=== PATIENT | male | born 1945 | race Caucasian/White ===

== ENCOUNTER 2020-01-08 17:10 | Inpatient (IN) | payer MEDICARE, BC, OTHER, SELFPAY ==
[2020-01-08] VITALS (9 sets, daily range): BP systolic 107–131; BP diastolic 59–111; PULSE 98–138; RESP 18–31; TEMP 35.9–39.3; O2SAT 93–100
--- NOTE | ~2020-01-08 | XR_ITS ---
EXAMINATION: XR chest 1V portable 01/08/2020 18:50 INDICATION: Fever. History of COPD. PROCEDURE: AP portable chest COMPARISON: No prior studies for comparison. FINDINGS: The lungs are clear. The lungs are hyperinflated which is consistent with, but not diagnost ic of chronic obstructive pulmonary disease. The cardiomediastinal silhouette is within normal limits . There are no pleural effusions. There is no pneumothorax suspected. IMPRESSION: 1: NO ACUTE CARDIOPULMONARY DISEASE. Reviewed, dictated and finalized at location A.
--- NOTE | 2020-01-08 17:16 | ECG_ITS ---
Measurements Intervals [place] Rate: 137 P: 79 IA: 137 QRS: 10 QRSD: 83 T: 78 QT: 276 QTc: 417 Interpretive Statements SINUS TACHYCARDIA BASELINE ARTIFACT- I, II, AVR, AVL, AVF, V1, V4-V6 ABNORMAL ECG Electronically Signed On 01-08-2020 19:49:56 CDT by Kristopher Goodson D.O.
--- NOTE | 2020-01-08 17:29 | ED.GENADULT ---
HPI - General Adult General Chief complaint: Altered Mental Status Stated complaint: fever/hallucinations Time Seen by Provider: 01/08/20 17:29 Source: EMS History of Present Illness HPI narrative: 74 years old white male, long term, came to the emergency room with a chief complaint of chills, confusion and fever. History of COPD and bilateral below-knee amputation. Related Data Allergies Allergy/AdvReac Type Severity Reaction Status Date / Time codeine Allergy Unknown Verified 01/08/20 17:55 Review of Systems Review of Systems: ROS unobtainable: Yes unobtainable due to medical condition PMFSH Social History Social History Gender identity (if verbalized by the patient): Male Exam Narrative: Exam Narrative: General appearance: Well-developed, well-nourished, shaky, confused Skin: Normal color Head: Normocephalic, nontraumatic Eyes: Clear conjunctiva ENT: Oropharynx normal, ears normal, nose normal Neck: Supple, nontender Chest and respiratory: Airway patent, no respiratory distress, no accessory muscle use Heart: Regular tachycardia Abdomen: Soft, nontender, no organomegaly, quiet bowel sounds Vascular: Normal peripheral pulses, normal capillary refill. Musculoskeletal: Normal range of motion, nontender back, bilateral below-knee amputation Neurologic: Alert and oriented to his name only Course Course Emergency Course: Stable Vital Signs Vital signs: Vital Signs Temperature 39.3 C H 01/08/20 17:03 Pulse Rate 138 H 01/08/20 17:03 Respiratory Rate 31 H 01/08/20 17:03 Blood Pressure 131/111 H 01/08/20 17:03 Pulse Oximetry 93 01/08/20 17:03 Temperature 39.3 C H 01/08/20 17:03 Pulse Rate 138 H 01/08/20 17:03 Respiratory Rate 31 H 01/08/20 17:03 Blood Pressure 131/111 H 01/08/20 17:03 Pulse Oximetry 93 01/08/20 17:03 Medical Decision Making MDM Narrative Medical decision making narrative: Patient came with fever Labs, chest x-ray, UA, IV fluid fluids, Tylenol IV. Further plan to follow Differential Diagnosis Differential Diagnosis: Urinary tract infection, pneumonia, viral infection Vital Signs Vital Signs: Vital Signs Temperature 39.3 C H 01/08/20 17:03 Pulse Rate 138 H 01/08/20 17:03 Respiratory Rate 31 H 01/08/20 17:03 Blood Pressure 131/111 H 01/08/20 17:03 Pulse Oximetry 93 01/08/20 17:03 Temperature 39.3 C H 01/08/20 17:03 Pulse Rate 138 H 01/08/20 17:03 Respiratory Rate 31 H 01/08/20 17:03 Blood Pressure 131/111 H 01/08/20 17:03 Pulse Oximetry 93 01/08/20 17:03 Lab Data Result diagrams: 01/08/20 17:27 01/08/20 17:27 Labs: Lab Results 01/08/20 01/08/20 01/08/20 Range/Units 17:27 17:27 17:28 WBC 10.8 H (4.5-10.0) K/mm3 RBC 4.04 L (4.6-6.20) M/mm3 Hgb 8.6 L (14.0-18.0) g/dL Hct 29.5 L (42.0-52.0) % MCV 73.0 L (80-100) fl MCH 21.3 L (26-34) pg MCHC 29.2 L (32-36) g/dl RDW 19.8 H (11.5-14.5) % Plt Count 480 H (150-375) k/mm3 MPV 8.5 (7.4-10.4) fl Immature Gran % (Auto) 0.5 (0-0.5) % Neut % (Auto) 87.3 H (45.5-73.1) % Lymph % (Auto) 4.7 L (18.3-44.2) % Gila % (Auto) 5.5 (2.6-8.5) % Eos % (Auto) 1.6 (0-4.4) % Baso % (Auto) 0.4 (0.2-1.2) % Lymph # (Auto) 0.51 L (0.9-3.2) K/mm3 Gila # (Auto) 0.6 (0.1-0.6) K/mm3 Eos # (Auto) 0.2 (0-0.3) K/mm3 Baso # (Auto) 0.0 (0.0-0.1) K/mm3 Abs Immat Gran (auto) 0.05 H (0.00-0.031) K/mm3 Absolute Neuts (auto) 9.5 H (1.3-6.7) K/mm3 Absolute Nucleated RBC 0.0 (0.0-0.012) K/mm3 Nucleated RBC % 0.0 (0.0-0.2) % Sodium 136
[2020-01-08 17:35] LABS: Basophils Percent Auto 0.4 % (0.2-1.2); Eosinophils Absolute Auto 0.2 K/mm3 (0-0.3); Eosinophils Percent Auto 1.6 % (0-4.4); Hematocrit 29.5 % (42.0-52.0); Hemoglobin 8.6 g/dL (14.0-18.0); Immature Granulocyte Absolute 0.05 K/mm3 (0.00-0.031); Immature Granulocyte Percent A 0.5 % (0-0.5); Lymphocytes Absolute Auto 0.51 K/mm3 (0.9-3.2); Lymphocytes Percent Auto 4.7 % (18.3-44.2); Mean Corpuscular HGB Conc 29.2 g/dl (32-36); Mean Corpuscular Hemoglobin 21.3 pg (26-34); Mean Platelet Volume 8.5 fl (7.4-10.4); Monocytes Absolute Auto 0.6 K/mm3 (0.1-0.6); Monocytes Percent Auto 5.5 % (2.6-8.5); Neutrophils Absolute Auto 9.5 K/mm3 (1.3-6.7); Neutrophils Percent Auto 87.3 % (45.5-73.1); Platelet Count Result 480 k/mm3 (150-375); Red Blood Count 4.04 M/mm3 (4.6-6.20); Red Cell Distribution Width 19.8 % (11.5-14.5); White Blood Count 10.8 K/mm3 (4.5-10.0)
[2020-01-08 17:46] LABS: Alanine Aminotransferase 20 U/L (4-50); Albumin Level 3.5 g/dL (3.5-5.1); Alkaline Phosphatase 99 U/L (38-126); Anion Gap 10.4 mmol/L (7-16); Aspartate Amino Transferase 19 U/L (17-59); Bilirubin,Total 0.4 mg/dL (0.2-1.3); Blood Urea Nitrogen 16 mg/dL (9-20); Calcium 8.5 mg/dL (8.4-10.2); Carbon Dioxide 31 mmol/L (22-30); Chloride 99 mmol/L (98-107); Estimated Glomerular Filt Rate > 60; Glucose 101 mg/dL (75-110); Potassium 4.4 mmol/L (3.4-5.0); Sodium 136 mmol/L (137-145)
[2020-01-08 17:47] LABS: Add Urine Microscopic? YES; Appearance Urine Cloudy (Clear); Bacteria Urine Trace /hpf; Bilirubin Urine Negative (Negative); Blood Urine 3+ (Negative); Color Urine Red (Yellow); Glucose Urine UA Negative (Negative); Ketones Urine Negative (Negative); Leukocyte Esterase Ur 2+ LEU/UL (Negative); Mucus Urine Rare /lpf; Nitrate Urine Negative (Negative); Protein Urine 2+ mg/dL (Negative); RBC Urine >75 /hpf (0-2); Specific Grav Ur 1.016 (1.001-1.035); Squamous Epithelial Cell Urine Moderate /hpf (Few); Urobilinogen Urine Negative mg/dL (<2.0); WBC Urine 31-50 /hpf
[2020-01-08 17:53] LABS: Lactic Acid 1.7 mmol/L (0.7-2.1)
[2020-01-08] MEDS: SODIUM CHLORIDE 0.9% IV 1,000 ML 999 ML IV CONT (17:56)
[2020-01-08] MEDS: LACTATED RINGERS 1,000 ML 125 ML IV CONT (23:07)
--- NOTE | 2020-01-08 23:48 | ADMGEN ---
This patient, Mauricio Talavera, was admitted to [facility] Surg Room 329-01. Patient/family oriented to hospital policies and general routines including ID bracelet, bed and alarms, visiting hours, pain management, procedures, bathroom and other care routines, personal items, smoking policy, room service/diet, and visiting hours. Valuables list has been completed. Information on how to activate the Rapid Response Team has been discussed. Patient/Family are encouraged to report perceived risks to care and to ask questions if they do not understand what they are told or what they should do.
[2020-01-09] VITALS (15 sets, daily range): BP systolic 130–157; BP diastolic 66–78; PULSE 79–101; RESP 18–20; TEMP 36–37; O2SAT 97–100
[2020-01-09 10:12] LABS: Basophils Absolute Auto 0.1 K/mm3 (0.0-0.1); Basophils Percent Auto 0.9 % (0.2-1.2); Eosinophils Absolute Auto 0.3 K/mm3 (0-0.3); Eosinophils Percent Auto 4.7 % (0-4.4); Hematocrit 24.1 % (42.0-52.0); Immature Granulocyte Absolute 0.02 K/mm3 (0.00-0.031); Immature Granulocyte Percent A 0.3 % (0-0.5); Lymphocytes Absolute Auto 0.67 K/mm3 (0.9-3.2); Lymphocytes Percent Auto 9.6 % (18.3-44.2); Mean Corpuscular HGB Conc 28.6 g/dl (32-36); Mean Corpuscular Volume 73.5 fl (80-100); Mean Platelet Volume 8.4 fl (7.4-10.4); Monocytes Absolute Auto 0.7 K/mm3 (0.1-0.6); Monocytes Percent Auto 10.3 % (2.6-8.5); Neutrophils Absolute Auto 5.2 K/mm3 (1.3-6.7); Neutrophils Percent Auto 74.2 % (45.5-73.1); Platelet Count Result 405 k/mm3 (150-375); Red Blood Count 3.28 M/mm3 (4.6-6.20); Red Cell Distribution Width 19.8 % (11.5-14.5)
[2020-01-09 10:27] LABS: Anion Gap 9.6 mmol/L (7-16); Blood Urea Nitrogen 14 mg/dL (9-20); Calcium 8.1 mg/dL (8.4-10.2); Carbon Dioxide 26 mmol/L (22-30); Chloride 103 mmol/L (98-107); Estimated Glomerular Filt Rate > 60; Glucose 83 mg/dL (75-110); Potassium 3.6 mmol/L (3.4-5.0); Sodium 135 mmol/L (137-145)
[2020-01-09 10:34] LABS: Hemoglobin 6.9 g/dL (14.0-18.0)
[2020-01-09 10:35] LABS: Anisocytosis 1+ (NORMAL); Hypochromasia 1+ (NORMAL); Platelet Estimate Adequate (Adequate)
[2020-01-09 10:36] LABS: Ovalocytes 1+ (NORMAL)
[2020-01-09] MEDS: LACTATED RINGERS 1,000 ML 125 ML IV CONT (11:41)
[2020-01-09] MEDS: polyethylene glycoL 3350 17 GM POWD.PACK PO (11:52)
[2020-01-09] MEDS: FERROUS SULFATE 324 MG TABLET PO (11:53)
[2020-01-09] MEDS: TAMSULOSIN HCL 0.4 MG CAPSULE PO (11:53)
[2020-01-09] MEDS: METOPROLOL SUCCINATE EXT REL 25 MG TABCR PO (11:54)
[2020-01-09] MEDS: PANTOPRAZOLE 40 MG TABLET PO (11:54)
[2020-01-09 12:30] LABS: Immature Reticulocyte Fraction 15.8 % (3.0-15.9); Reticulocyte Hemoglobin Conten 20.9 pg (28.2-35.7); Reticulocyte Percent 1.49 % (0.7-4.3); Reticulocytes Absolute 0.05 B/L (32.2-175.7)
[2020-01-09 13:02] LABS: Lactate Dehydrogenase 328 U/L (313-618)
[2020-01-09 13:40] LABS: Iron 17 ug/dL (49-181)
[2020-01-09 13:49] LABS: Percent Iron Saturation 7 % (20-50)
--- NOTE | 2020-01-09 17:17 | PM.IMHP ---
H&P: HPI History of Present Illness Date/Time: 01/09/20 17:17 Chief complaint: Urinary Tract Infection Narrative: date of visit 01/08 1130. 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 He does not remember specifics and was evaluated in ER here and found to have pyuria with his indwelling Dejesus , placed on antibiotics and admitted for evaluation the same. He has had a dry cough for several months. COVID tested negative one week ago was retested in the ER. He states that the catheter has been present for approximately 2 weeks after treatment at [facility] for the ongoing osteo. He has had neurogenic bladder and has done self catheterizations for years. Review of Systems Review of Systems: Narrative: constitutional weight is stable appetite good Eye no double vision scotoma mouth no pharyngitis laryngitis pulmonary dry cough but no increased shortness of breath GI past history of peptic disease but no GI complaints melena hematochezia or diarrhea at present time as per present illness has had of indwelling Dejesus the past 2 weeks and prior to that had done self catheterizations for neurogenic bladder muscle skeletal no particular joint discomfort, chest chronic osteo neuro no seizures no syncope integument the decubitus ulcers on his buttocks bilaterally PMFSH Past Medical History Medical History (Updated 01/09/20 @ 17:24 by Skinny Weston MD) Decubitus ulcers Osteomyelitis Surgical History Surgical History (Updated 01/09/20 @ 17:23 by Skinny Weston MD) S/P bilateral below knee amputation Family History Family History (Updated 01/09/20 @ 17:21 by Skinny Weston MD) Mother , had hypertension but of natural causes at age 93 Hypertension Other Unknown family medical history Social History Social History (Updated 01/09/20 @ 17:26 by Skinny Weston MD) Social History: retired from [employer] approximately 10 years ago, no EtOH and has not smoked for some 15 years a prior that 1-2 packs a day for over 30 years has lived independently until recent bout decubitus ulcers and osteo Smoking status: Former smoker Alcohol intake: never Substance use: never Gender identity (if verbalized by the patient): Male Spiritual care concerns: No Meds Home Medications and Allergies Home Medications Medication Instructions Recorded Confirmed Type amoxicillin-pot clavulanate 1 tablet PO DAILY 01/08/20 01/09/20 History gabapentin 600 mg PO TID 01/08/20 01/09/20 History metoprolol succinate 25 mg PO DAILY 01/08/20 01/09/20 History omeprazole 20 mg PO DAILY 01/08/20 01/09/20 History tamsulosin 0.4 mg PO DAILY 01/08/20 01/09/20 History trazodone 100 mg PO HS 01/08/20 01/09/20 History acetaminophen 500 mg PO TID PRN 01/09/20 01/09/20 History ferrous sulfate 325 mg PO DAILY 01/09/20 01/09/20 History polyethylene glycol 3350 [Miralax] 17 g PO DAILY 01/09/20 01/09/20 History Allergies Allergy/AdvReac Type Severity Reaction Status Date / Time codeine Allergy Unknown Verified 01/08/20 17:55 Vital Signs Vital Signs - 24 hr 01/08/20 18:41 01/08/20 19:04 01/08/20 19:09 Temperature 37.4 C 37.7 C H Pulse Rate 124 H 122 H Respiratory Rate 21 H 25 H Blood Pressure 124/102 H 126/72 Pulse Oximetry 95 93 01/08/20 19:46 01/08/20 20:20 01/08/20 21:25 Temperature Pulse Rate 115 H 111 H 99 Respiratory Rate 20 20 18 Blood Pressure 107/61 109/59 L 109/61 Pulse Oximetry 95 100 100 01/08/20 21:27 01/08/20 21:45 01/09/20 02:00 Temperature 37.2 C 35.9 C L 36.9 C Pulse Rate 99 98 101 H Respiratory Rate 19 18 18 Blood Pressure 109/61 120/62 142/73 H Pulse Oximetry 100 96 100 01/09/20 06:00 01/09/20 10:00 01/09/20 11:50 Temperature 36.0
[2020-01-09] MEDS: SODIUM CHLORIDE 0.9% IV 250 ML 30 ML IV CONT (17:49)
--- NOTE | 2020-01-09 22:20 | PC.NURSE ---
Found Normal saline had been running instead of blood. blood had been hanging for four hours with no blood infused. Blood so it was taken down. Nelda Colón informed. New 1 unit of blood ordered.
[2020-01-10] VITALS (9 sets, daily range): BP systolic 131–174; BP diastolic 63–86; PULSE 79–95; RESP 18–20; TEMP 36.3–36.8; O2SAT 92–100; BMI 22.4
[2020-01-10] MEDS: LACTATED RINGERS 1,000 ML 125 ML IV CONT ×3 (03:12→23:10)
[2020-01-10] MEDS: PANTOPRAZOLE 40 MG TABLET PO (06:14)
[2020-01-10 06:21] LABS: Basophils Absolute Auto 0.1 K/mm3 (0.0-0.1); Basophils Percent Auto 0.5 % (0.2-1.2); Eosinophils Absolute Auto 0.5 K/mm3 (0-0.3); Eosinophils Percent Auto 3.8 % (0-4.4); Hematocrit 27.1 % (42.0-52.0); Hemoglobin 8.4 g/dL (14.0-18.0); Immature Granulocyte Absolute 0.04 K/mm3 (0.00-0.031); Immature Granulocyte Percent A 0.3 % (0-0.5); Lymphocytes Absolute Auto 0.98 K/mm3 (0.9-3.2); Lymphocytes Percent Auto 8.1 % (18.3-44.2); Mean Platelet Volume 8.6 fl (7.4-10.4); Monocytes Absolute Auto 1.2 K/mm3 (0.1-0.6); Neutrophils Absolute Auto 9.3 K/mm3 (1.3-6.7); Neutrophils Percent Auto 77.3 % (45.5-73.1); Platelet Count Result 388 k/mm3 (150-375); Red Blood Count 3.66 M/mm3 (4.6-6.20); Red Cell Distribution Width 19.3 % (11.5-14.5); White Blood Count 12.1 K/mm3 (4.5-10.0)
[2020-01-10 06:30] LABS: Anion Gap 8.8 mmol/L (7-16); Blood Urea Nitrogen 13 mg/dL (9-20); Carbon Dioxide 27 mmol/L (22-30); Chloride 103 mmol/L (98-107); Estimated Glomerular Filt Rate > 60; Glucose 99 mg/dL (75-110); Potassium 3.8 mmol/L (3.4-5.0); Sodium 135 mmol/L (137-145)
[2020-01-10] MEDS: TAMSULOSIN HCL 0.4 MG CAPSULE PO (09:45)
[2020-01-10] MEDS: FERROUS SULFATE 324 MG TABLET PO (09:52)
[2020-01-10] MEDS: METOPROLOL SUCCINATE EXT REL 25 MG TABCR PO (09:52)
[2020-01-10 12:00] LABS: SARS-CoV-2 RNA PCR Negative
--- NOTE | 2020-01-10 12:49 | PC.NURSE ---
Notified Dr. Weston that patient COVID test is negative
[2020-01-10] MEDS: SOD HYPOCHLORITE 1/4 STRENGTH 473 ML 1 APPLIC TOPICAL (15:04)
--- NOTE | 2020-01-10 18:09 | PM.IMPN ---
Progress Note: A&P Assessment and Plan (1) Altered mental status: Code(s): R41.82 - Altered mental status, unspecified Status: Acute Assessment and Plan: altered mental status felt secondary to fever metabolic encephalopathy. Has resolved (2) Urinary tract infection: Qualifiers: Encounter type: subsequent encounter Indwelling urinary catheter type: indwelling urethral catheter Urinary tract infection type: catheter-associated UTI Qualified Code(s): T83.511D - Infection and inflammatory reaction due to indwelling urethral catheter, subsequent encounter; N39.0 - Urinary tract infection, site not specified Code(s): N39.0 - Urinary tract infection, site not specified Status: Acute Assessment and Plan: catheter associated UTI. Cultures of blood and urine have been obtained and are negative. and placed on Zosyn and vancomycin . Patient has been on long-term Augmentin and could have rendered culture negative osteo appears chronic and I doubt that was the source of the fever COVID negative as was 1 week prior (3) Decubitus ulcers: Code(s): L89.90 - Pressure ulcer of unspecified site, unspecified stage Status: Acute Assessment and Plan: chronic and appear unchanged per patient. Wound care has evaluated and will continue treatment (4) Osteomyelitis: Code(s): M86.9 - Osteomyelitis, unspecified Status: Acute Assessment and Plan: patient relates he is given the option long-term antibiotics IV versus oral and chose oral with the Augmentin which he has been taking daily (5) Anemia: Code(s): D64.9 - Anemia, unspecified Status: Acute Assessment and Plan: with hydration hemoglobin has dropped to 6.9. MCV is low but normal BUN and and no evidence of acute blood loss. Iron studies are compatible with anemia chronic disease with low iron and TIBC. transfused 1 unit of packed cells and hemoglobin 8.4 today (6) COPD (chronic obstructive pulmonary disease): Code(s): J44.9 - Chronic obstructive pulmonary disease, unspecified Status: Acute Assessment and Plan: has quit smoking and will use inhaler p.r.n. if needed with updraft (7) Hypertension: Code(s): I10 - Essential (primary) hypertension Status: Acute Assessment and Plan: blood pressure fair control continue low-dose beta-komal (8) DVT prophylaxis: Code(s): Z29.9 - Encounter for prophylactic measures, unspecified Status: Acute Assessment and Plan: none with bilateral amputee Subjective Date/time seen: 01/10/20 18:09 Interval history: date of visit 01/09. 74-year-old bilateral BKA amputee with bilateral buttocks decubiti and chronic osteo admitted from senior living where rehabing and treating wounds presented with fever and altered mental status. Wounds chronic and unchanged and had pyuria with Dejesus catheter of 2 weeks duration. On antibiotics and no further fever but cultures are negative today. Exam Narrative: Exam Narrative: blood pressure 150/72pulse is 84 saturating 99% on room air afebrile and presented to ER with a temp of 39.3? pupils equal reactive light sclera anicteric neck supple no adenopathy thyromegaly or carotid bruit lungs clear no wheezing consolidation CV regular rate rhythm no murmurs abdomen is soft nontender no masses extremities without edema with bilateral below-knee amputations and stumps clean without any abrasions or lesions has decubitus ulcers bilateral buttocks and small superficial sacral, left buttocks appears deeper and probable exposed bone With some probable necrosis neuro alert at present time oriented cranial nerves intact no focal deficits psych appropriate Objective Data Vital Signs Vital Signs: Vital Signs - 24 hr 01/09/20 18:17 01/09/20 19:17 01/09/20 20:17 Temperature 36.7 C 36.9 C 36.7 C Pulse Rate 79 86 84 Respiratory Rate 18 18 18 [place]
[2020-01-11] MEDS: PANTOPRAZOLE 40 MG TABLET PO (05:13)
[2020-01-11 05:22] LABS: Vancomycin Trough 9.2 ug/mL (10.0-20.0)
[2020-01-11 06:00] VITALS: BP 136/79; PULSE 81; RESP 20; TEMP 36.3; O2SAT 99
[2020-01-11] MEDS: LACTATED RINGERS 1,000 ML 125 ML IV CONT ×2 (09:29→22:47)
[2020-01-11 09:34] VITALS: PULSE 84
[2020-01-11] MEDS: TAMSULOSIN HCL 0.4 MG CAPSULE PO (09:34)
[2020-01-11] MEDS: FERROUS SULFATE 324 MG TABLET PO (09:34)
[2020-01-11] MEDS: METOPROLOL SUCCINATE EXT REL 25 MG TABCR PO (09:34)
--- NOTE | 2020-01-11 09:35 | PC.NURSE ---
Patient sitting in wheel chair. Patient does not want to get back in bed. This RN educated patient on the need to change his dressings. Unable to change while the patient is sitting in his wheel chair. Patient refuses to get in bed for dressing changes.
[2020-01-11] MEDS: ACETAMINOPHEN 325 MG TABLET 650 MG PO (10:04)
[2020-01-11 14:00] VITALS: BP 147/79; PULSE 76; RESP 18; TEMP 36.5; O2SAT 100
[2020-01-11 15:07] LABS: SARS-CoV-2 RNA PCR Negative
--- NOTE | 2020-01-11 17:18 | PC.NURSE ---
This RN has made multiple attempts today to transfer patient to bed to change the patient's dressings. Patient has refused all attempts at dressing changes. This RN educated patient on the need to change dressings.
--- NOTE | 2020-01-11 17:34 | PM.IMPN ---
Progress Note: A&P Assessment and Plan (1) Altered mental status: Code(s): R41.82 - Altered mental status, unspecified Status: Acute Assessment and Plan: ----- Resolved. altered mental status felt secondary to fever and possibly UTI. (2) Urinary tract infection: Qualifiers: Encounter type: subsequent encounter Indwelling urinary catheter type: indwelling urethral catheter Urinary tract infection type: catheter-associated UTI Qualified Code(s): T83.511D - Infection and inflammatory reaction due to indwelling urethral catheter, subsequent encounter; N39.0 - Urinary tract infection, site not specified Code(s): N39.0 - Urinary tract infection, site not specified Status: Acute Assessment and Plan: -----catheter associated UTI. Although pt's urine culture is negative, it could have been affected by his daily augmentin. Pts symptoms have improved since being on Zosyn and vancomycin. COVID negative as was 1 week prior (3) Decubitus ulcers: Code(s): L89.90 - Pressure ulcer of unspecified site, unspecified stage Status: Acute Assessment and Plan: ----- chronic and appear unchanged per patient. Wound care has evaluated and will continue treatment (4) Osteomyelitis: Code(s): M86.9 - Osteomyelitis, unspecified Status: Acute Assessment and Plan: patient relates he is given the option long-term antibiotics IV versus oral and chose oral with the Augmentin which he has been taking daily (5) Anemia: Code(s): D64.9 - Anemia, unspecified Status: Acute Assessment and Plan: with hydration hemoglobin has dropped to 6.9. MCV is low but normal BUN and and no evidence of acute blood loss. Iron studies are compatible with anemia chronic disease with low iron and TIBC. transfused 1 unit of packed cells earlier in the stay and hgb remains stable. (6) COPD (chronic obstructive pulmonary disease): Code(s): J44.9 - Chronic obstructive pulmonary disease, unspecified Status: Acute Assessment and Plan: -----Pt no longer smokes. Continue inhalers at needed (7) Hypertension: Code(s): I10 - Essential (primary) hypertension Status: Acute Assessment and Plan: -----bp 147/79, continue BB. (8) DVT prophylaxis: Code(s): Z29.9 - Encounter for prophylactic measures, unspecified Status: Acute Assessment and Plan: none with bilateral amputee Time Spent With Patient Time with patient: 25 - 35 minutes Subjective Date/time seen: 01/11/20 17:34 Interval history: Pt is a 74 y/o male here for UTI and AMS. Pt was seen today and has no complaints. He denies CP, SOB, fevers, chills, vomiting, diarrhea, constipation or REYNOSO. He had some nausea earlier today but that has resolved. Pt does not want to go back to SNF and wants to go home at discharge. Review of Systems Review of Systems: All systems reviewed & are unremarkable except as noted in HPI and below Exam Narrative: Exam Narrative: General: elderly pt resting in his wheelchair in NAD HEENT: normocephalic Neck: supple Neuro: Alert and oriented x4 CV:RRR Resp:CTA Abd: Soft, non distended. No pain to palpation. Positive bowel sounds Extremities: bilateral BKA Objective Data Vital Signs Vital Signs: Vital Signs - 24 hr 01/10/20 20:00 01/11/20 06:00 01/11/20 09:34 Temperature 98.2 F 97.3 F L Pulse Rate 88 81 84 Respiratory Rate 18 20 Blood Pressure 131/63 136/79 Pulse Oximetry 98 99 01/11/20 14:00 Temperature 97.7 F Pulse Rate 76 Respiratory Rate 18 Blood Pressure 147/79 H Pulse Oximetry 100 Intake/Output Intake/Output: Intake & Output 01/08/20 01/09/20 01/10/20 01/11/20 23:59 23:59 23:59 23:59 Intake Total 1450 3140 5930 2810 Output Total 1800 2650 2100 Balance 1450 1340 3280 710 Meds/Results Medications: Active Medications Generic Name Dose Route
[2020-01-11 21:05] VITALS: BP 150/66; PULSE 84; RESP 20; TEMP 36.8; O2SAT 98
[2020-01-12] MEDS: PANTOPRAZOLE 40 MG TABLET PO (05:11)
[2020-01-12 05:38] LABS: Hematocrit 27.4 % (42.0-52.0); Hemoglobin 8.1 g/dL (14.0-18.0); Mean Corpuscular HGB Conc 29.6 g/dl (32-36); Mean Corpuscular Hemoglobin 22.2 pg (26-34); Mean Corpuscular Volume 75.1 fl (80-100); Mean Platelet Volume 8.6 fl (7.4-10.4); Platelet Count Result 363 k/mm3 (150-375); Red Blood Count 3.65 M/mm3 (4.6-6.20); Red Cell Distribution Width 19.5 % (11.5-14.5); White Blood Count 11.3 K/mm3 (4.5-10.0)
[2020-01-12 06:00] VITALS: BP 138/61; PULSE 81; RESP 20; TEMP 36.4; O2SAT 99
[2020-01-12 06:05] LABS: Anion Gap 8.7 mmol/L (7-16); Blood Urea Nitrogen 11 mg/dL (9-20); Calcium 7.9 mg/dL (8.4-10.2); Carbon Dioxide 30 mmol/L (22-30); Chloride 99 mmol/L (98-107); Estimated CRCL calculation 71 ml/min; Estimated Glomerular Filt Rate > 60; Glucose 182 mg/dL (75-110); Potassium 3.7 mmol/L (3.4-5.0); Sodium 134 mmol/L (137-145)
[2020-01-12] MEDS: ACETAMINOPHEN 325 MG TABLET 650 MG PO ×2 (09:14→14:39)
[2020-01-12] MEDS: LACTATED RINGERS 1,000 ML 125 ML IV CONT (09:15)
[2020-01-12] MEDS: FERROUS SULFATE 324 MG TABLET PO (09:17)
[2020-01-12 09:18] VITALS: PULSE 81
[2020-01-12] MEDS: TAMSULOSIN HCL 0.4 MG CAPSULE PO (09:18)
[2020-01-12] MEDS: polyethylene glycoL 3350 17 GM POWD.PACK PO (09:18)
[2020-01-12] MEDS: METOPROLOL SUCCINATE EXT REL 25 MG TABCR PO (09:18)
--- NOTE | 2020-01-12 11:02 | PM.DS ---
DS: Admitting Diagnosis Admitting Diagnosis Admitting Diagnosis: Altered mental status, unspecified DS: Discharge Diagnosis Discharge Diagnosis (1) Altered mental status: Code(s): R41.82 - Altered mental status, unspecified Status: Acute Assessment and Plan: ----- Resolved. altered mental status felt secondary to fever and possibly UTI. (2) Urinary tract infection: Qualifiers: Encounter type: subsequent encounter Indwelling urinary catheter type: indwelling urethral catheter Urinary tract infection type: catheter-associated UTI Qualified Code(s): T83.511D - Infection and inflammatory reaction due to indwelling urethral catheter, subsequent encounter; N39.0 - Urinary tract infection, site not specified Code(s): N39.0 - Urinary tract infection, site not specified Status: Acute Assessment and Plan: -----catheter associated UTI. Although pt's urine culture is negative, it could have been affected by his daily augmentin. Pts symptoms have improved since being on Zosyn and vancomycin. he was discharged on cipro and doxy. COVID negative as was 1 week prior (3) Decubitus ulcers: Code(s): L89.90 - Pressure ulcer of unspecified site, unspecified stage Status: Acute Assessment and Plan: ----- chronic and appear unchanged per patient. patient insists that he will not go back to [facility] for [facility] care. He understands that he needs to be diligent with his wounds with these can become infected. He understands that he needs to wash them twice a day and keep them covered. He is to follow-up with his primary care physician so he can be monitored. He was told that is recommended that he gets wound care from a facility and he declined this. Wound care has evaluated the Patient and I have spoken to them about plan of care. patient told that he needs to continue his Augmentin once he is done with antibiotics he is discharged on. (4) Osteomyelitis: Code(s): M86.9 - Osteomyelitis, unspecified Status: Acute Assessment and Plan: patient relates he is given the option long-term antibiotics IV versus oral and chose oral with the Augmentin which he has been taking daily (5) Anemia: Code(s): D64.9 - Anemia, unspecified Status: Acute Assessment and Plan: with hydration hemoglobin has dropped to 6.9. MCV is low but normal BUN and and no evidence of acute blood loss. Iron studies are compatible with anemia chronic disease with low iron and TIBC. transfused 1 unit of packed cells earlier in the stay and hgb remains stable. (6) COPD (chronic obstructive pulmonary disease): Code(s): J44.9 - Chronic obstructive pulmonary disease, unspecified Status: Acute Assessment and Plan: -----Pt no longer smokes. (7) Hypertension: Code(s): I10 - Essential (primary) hypertension Status: Acute Assessment and Plan: -----bp 141/90, continue BB. (8) DVT prophylaxis: Code(s): Z29.9 - Encounter for prophylactic measures, unspecified Status: Acute Assessment and Plan: none with bilateral amputee (9) Acute metabolic encephalopathy: Code(s): G93.41 - Metabolic encephalopathy Status: Acute (10) Sepsis: Code(s): A41.9 - Sepsis, unspecified organism Status: Acute Assessment and Plan: -----with fevers 39.3 with HR 138 and suspected UTI. DS: Summary Hospital Course Reason for hospitalization: Patient is a 74-year-old female who self caths with chronic osteomyelitis and is wheelchair-bound who presented emergency room for chills, confusion and fever. Temperature 39.3? C, pulse 138, respiratory rate 31, blood pressure 131/111, pulse ox 93 on room air. white blood count 10.8, hemoglobin 8.6, hematocrit [place] 9.5, platelets 480. BMP relatively normal his a 36, and CO2 31. UA suspicious of UTI. EKG shows sinus tachycardia. C
[2020-01-12 14:00] VITALS: BP 141/90; PULSE 78; RESP 16; TEMP 36.6; O2SAT 100
[2020-01-12] MEDS: SOD HYPOCHLORITE 1/4 STRENGTH 473 ML 1 APPLIC TOPICAL (15:57)
== END 2020-01-12 16:23 | disposition home health service (06) | DRG 698 ==
LOC: ANHED 20:35 → ANH3MEDSUR 01-09 13:06
PROVIDERS: Family Medicine; Admitting Provider Internal Medicine; Emergency Provider Emergency Medicine; Family Provider General Practice; PCP Internal Medicine; Visit Provider Physician Assistant
DX: T83.511A Infection and inflammatory reaction due to indwelling urethral catheter, initial encounter (principal); L89.324 Pressure ulcer of left buttock, stage 4; L89.314 Pressure ulcer of right buttock, stage 4; A41.9 Sepsis, unspecified organism; G93.41 Metabolic encephalopathy; M86.60 Other chronic osteomyelitis, unspecified site; L89.152 Pressure ulcer of sacral region, stage 2; N39.0 Urinary tract infection, site not specified; D63.8 Anemia in other chronic diseases classified elsewhere; J44.9 Chronic obstructive pulmonary disease, unspecified; I10 Essential (primary) hypertension; Z11.59 Encounter for screening for other viral diseases; Z79.2 Long term (current) use of antibiotics; Z79.899 Other long term (current) drug therapy; Z89.512 Acquired absence of left leg below knee; Z89.511 Acquired absence of right leg below knee; Z99.3 Dependence on wheelchair
CPT/HCPCS: 36415; 36430; 71045; 80048; 80053; 80202; 81001; 82728; 83540; 83550; 83605; 83615; 85025; 85027; 85046; 86850; 86900; 86901; 86923; 87040; 87086; 87635; 93005; 96361; 96365; 96367; 96375; 97161; 97165; 99285; A9270; C9803; J0131; J0696; J2543; J3370; J7030; J7050; J7120; P9016; U0003